=== PATIENT | male | born 2000 | race Caucasian/White ===

== ENCOUNTER 2022-12-23 12:52 | Emergency (ER) | payer MEDICAID, SELFPAY ==
[2022-12-23 13:06] VITALS: BP 152/87; PULSE 82; RESP 18; TEMP 36.5; O2SAT 98
--- NOTE | 2022-12-23 15:05 | ED.GENADUL_ITS ---
Discharge Plan Disposition Patient Disposition: Home Discharge Details Clinical Impression: Chronic dental pain Primary Care Provider: None,None ED Provider: Tio Mae Home Meds and New Rx's Prescriptions: New penicillin V potassium 500 mg tablet 500 mg PO QID Qty: 40 0RF Discharge Instructions Instructions: Dental Abscess (ED) Additional Instructions: Please take ibuprofen over the counter. Take 600mg by mouth every 6 hours as needed for pain. Please take acetaminophen (tylenol) - 650mg every 6 hours by mouth as needed for pain. Please take full course of antibiotic as prescribed. Please follow-up with your dentist. Call today to schedule follow-up appointment. Please contact your primary care physician to arrange follow-up. Return to the ER immediately for any worsening or new concerning symptoms or if pain is not improving as expected. Medical Decision Making 22-year-old male here with tooth #4 dental pain and notes been present for a couple years and worse over the past few days. Concern for likely periapical dental infection. Plan for trial of oral antibiotics. Plan for follow-up with dentist. Usual customary discharge instructions reviewed with the patient. HPI General Mode of arrival: ambulatory . Date/Time Provider Initiated Documentation: 12/23/22 13:45 . Limitations to Documentation: no limitations . Information obtained by: patient . HPI Narrative: 22-year-old male presents with chief complaint of dental pain. Patient has shooting dental pain in right upper premolar. Pain is worse over the past 2 days. Side pain in this area for 2 years. Patient notes pain is worse when he touches affected tooth. No associated fever. No associated facial swelling. Patient has not been on antibiotics for this. He has not yet seen his dentist. Related Data Home Medications Medication Instructions Recorded Confirmed penicillin V potassium 500 mg 500 mg PO QID #40 tabs 12/23/22 tablet Previous Rx's Medication Instructions Recorded penicillin V potassium 500 mg 500 mg PO QID #40 tabs 12/23/22 tablet General Stated Complaint: DentalOral JAIME: 4 Review of Systems All systems reviewed & are unremarkable except as noted in HPI and below Constitutional Constitutional: Denies fever(s) PFSH All Active Problems Chronic dental pain (Acute) Social History Smoking/Tobacco Use Status: Current every day Tobacco Type: cigarettes Smoking risk assessment performed?: Yes Substance use type: marijuana Do you feel safe at home: Yes Do you feel safe in your relationship?: Yes Exam Const General: cooperative and no acute distress HENMT Head: normocephalic and atraumatic Ears: TM normal on the right Mouth: moist mucous membranes Throat: posterior oropharynx normal and uvula midline Other: No stridor, tooth #4 tender palpation with no fluctuance at base of the tooth Neck Neck: no lymphadenopathy Neuro General: patient alert, patient awake and tone normal Course Vital Signs Vital signs: Vital Signs Temperature 36.5 C 12/23/22 13:06 Pulse 82 12/23/22 13:06 Respiratory Rate 18 12/23/22 13:06 Blood Pressure 152/87 H 12/23/22 13:06 Pulse Oximetry 98 12/23/22 13:06 Temperature 36.5 C 12/23/22 13:06 Temperature Source Skin 12/23/22 13:06 Pulse 82 12/23/22 13:06 Respiratory Rate 18 12/23/22 13:06 Respiratory Effort Normal 12/23/22 13:08 Blood Pressure 152/87 H 12/23/22 13:06 Blood Pressure Position Sitting 12/23/22 13:06 Pulse Oximetry 98 12/23/22 13:06
[2022-12-23] MEDS: Acetaminophen 325 MG TAB 650 MG PO (15:12)
[2022-12-23] MEDS: Ibuprofen 600 MG TAB PO (15:12)
[2022-12-23] MEDS: Penicillin V POTASSIUM 500 MG TAB PO (15:13)
[2022-12-23 15:14] VITALS: BP 152/87; PULSE 82; RESP 18; TEMP 36.5; O2SAT 98
== END 2022-12-23 15:36 | disposition home or self-care (01) ==
PROVIDERS: Emergency Provider Student in an Organized Health Care Education/Training Program
DX: K04.7 Periapical abscess without sinus (principal)
CPT/HCPCS: 99283; 99284